=== PATIENT | male | born 1960 | race Caucasian/White ===

== ENCOUNTER 2016-12-14 07:48 | Day surgery (SDC) | payer OTHER ==
[~2016-12-14 07:48] MED LIST: Sodium Chloride 0.9% 1,000 ML IV SCH; Sodium Chloride 0.9% 5 ML Syringe FLUSH PRN
[2016-12-14] MEDS ORDERED: Sodium Chloride 0.9% 5 ML Syringe FLUSH PRN (08:00)
[2016-12-14] MEDS: Sodium Chloride 0.9% 1,000 ML IV SCH (08:10)
[2016-12-14] MEDS ORDERED: EPINEPHrine 1:10,000 1 MG/10 ML Syringe ONE (08:42)
[2016-12-14] MEDS ORDERED: Propofol 200 MG/20 ML SDV ONE (08:44)
[2016-12-14] MEDS ORDERED: Midazolam 1 MG/ML 2 ML SDV ONE (08:44)
[2016-12-14] MEDS ORDERED: Midazolam 1 MG/ML 2 ML SDV IV ONE (09:13)
[2016-12-14] MEDS ORDERED: Propofol 200 MG/20 ML SDV IV ONE (09:13)
--- NOTE | 2016-12-14 09:46 | PCM.PRGIL ---
Lower GI Endoscopy Procedure Procedure:: Reports: Colonoscopy Informed consent obtained?: Yes Indications:: Reports: Screening Rectodigital exam:: Reports: Normal exam Sedation:: Reports: Anesthesia Sedation comments:: MAC was given to the patient by the national van truck driver. Depth reached (location):: Reports: Cecum, Terminal Ileum Landmarks:: Reports: Light Source, Ileocecal Valve - Findings Rectal:: Reports: Normal Hemorrhoids:: Reports: None Condyloma:: Reports: None Colitis (location):: Reports: None Polyps (location):: Reports: None Mass (location):: Reports: None Previous colon surgery (location):: Reports: None Stenosis (location):: Reports: None Complications:: Reports: None Cultures:: Reports: None (Normal colonoscopy.)
[2016-12-14 10:48] VITALS: BP 93/71
--- NOTE | 2016-12-22 22:27 | OR ---
DATE OF SURGERY: 12/14/2016 SURGEON: Roger Tipton MD PREOPERATIVE DIAGNOSIS: Screening colonoscopy. POSTOPERATIVE DIAGNOSIS: Normal colonoscopy. OPERATION PERFORMED: Colonoscopy. INSTRUMENT: Olympus video colonoscope. ANESTHESIA: Monitored anesthesia care, administered by executive steward with progression. CONSENT: Informed consent was obtained from the patient regarding this procedure. All possible complications were thoroughly discussed. These include the possibility of perforation. In the event of perforation, an open operation, bowel resection, colostomy and even were discussed. The patient decided to proceed. PROCEDURE IN DETAIL: Continuous EKG, oximetry monitoring, an intermittent blood pressure, and respiratory monitoring were performed throughout the procedure. The Olympus videocolonoscope was introduced into the rectum and advanced to the ileocecal junction. As the scope was being withdrawn, a careful examination of the entire colon was performed. There was no abnormality detected during this colonoscopy. The cecum, ileocecal junction, ascending colon, hepatic flexure, transverse colon, splenic flexure, descending colon, sigmoid, and rectum were completely examined. No intraluminal defects were identified. There is no evidence of polyps, AV malformations, angiodysplasia, or malignancy. No obstruction. The scope was totally withdrawn. Retroflexion technique was employed in the rectum. No additional findings were discovered. The patient tolerated the procedure well. FINAL DIAGNOSIS: Normal colonoscopy. Tolerance excellent. /[id number]/MODL
== END 2016-12-14 10:40 | disposition home or self-care (01) ==
LOC: KA.SDS 07:48
PROVIDERS: ATTEND Family Medicine
DX: Z12.11 Encounter for screening for malignant neoplasm of colon (principal); I10 Essential (primary) hypertension; E78.00 Pure hypercholesterolemia, unspecified; Z79.899 Other long term (current) drug therapy
CPT/HCPCS: 82962; J2250; J2704; J7030